=== PATIENT | female | born 1945 | race Two or more races ===

== ENCOUNTER 2017-05-24 18:53 | Emergency (ER) | payer OTHER, MEDICARE ==
[2017-05-24] MEDS ORDERED: ACETAMINOPHEN 325 MG TABLET PO ONE (19:23)
[2017-05-24] MEDS ORDERED: CEPHALEXIN 500 MG CAPSULE PO ONE (19:23)
[2017-05-24] MEDS ORDERED: LIDOCAINE 1% INJ-PF (10 MG/ML) 30 ML SDV INJ ONE (19:37)
[2017-05-24] MEDS ORDERED: DIPH/PERTUSS(ACELL)/TETANUS VAC/PF 0.5 ML SYR (>=10YO) IM ONE (19:42)
--- NOTE | 2017-05-24 20:03 | ER Document Report ---
ED Hand/Wrist Injury - General Chief Complaint: Finger Injury Stated Complaint: RIGHT MIDDLE FINGER INJURY/WORK INJURY Time Seen by Provider: 05/24/17 19:17 TRAVEL OUTSIDE OF THE [place] IN LAST 30 DAYS: No - HPI Injury to: Middle finger Onset: Just prior to arrival Where: Work - slice injury vs crush Quality of pain: No pain Context: Laceration - tetanus not UTD - Related Data Allergies/Adverse Reactions: Influenza Virus Vaccines Allergy (Verified 05/24/17 18:58) Home Medications: Current Home Medications Amlodipine Besylate 5 mg PO DAILY 05/24/17 [History] Calcitriol [Calcitriol] 1 tab PO DAILY 05/24/17 [History] Levothyroxine Sodium 1 tab PO DAILY 05/24/17 [History] Losartan Potassium 100 mg PO DAILY 05/24/17 [History] Past Medical History - Social History Smoking Status: Never Smoker Frequency of alcohol use: None Drug Abuse: None Family History: Reviewed & Not Pertinent - Past Medical History Cardiac Medical History: Reports: Hx Hypercholesterolemia, Hx Hypertension Renal/ Medical History: Denies: Hx Peritoneal Dialysis Surgical Hx: Negative - Immunizations Hx Diphtheria, Pertussis, Tetanus Vaccination: Yes Review of Systems - Review of Systems Constitutional: No symptoms reported Musculoskeletal: See HPI Skin: See HPI -: Yes All other systems reviewed and negative Physical Exam - Vital signs Vitals: Temp Pulse Resp BP Pulse Ox 98.1 F 65 16 138/89 H 97 05/24/17 18:54 05/24/17 18:54 05/24/17 18:54 05/24/17 18:54 05/24/17 18:54 - General General appearance: Appears well, Alert In distress: None - Cardiovascular Pulses: Normal: Radial Normal capillary refill: Yes - Neurological Motor strength normal: LUE, RUE 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 Laceration was irrigated with Betadine and saline at the bedside and closed with 6-0 nylon with 5 interrupted sutures. Patient tolerated the procedure well. No evidence of tuft fracture or foreign body noted on x-ray. Tetanus status updated. Patient is stable for discharge home on p.o. Keflex and to follow-up with her primary care physician in 8-10 days to have her sutures removed. - Vital Signs Vital signs: Temp Pulse Resp BP Pulse Ox 98.1 F 65 16 138/89 H 97 05/24/17 18:54 05/24/17 18:54 05/24/17 18:54 05/24/17 18:54 05/24/17 18:54 - Diagnostic Test Radiology reviewed: Image reviewed, Reports reviewed Discharge - Discharge Clinical Impression: Laceration Condition: Good Disposition: HOME, SELF-CARE Instructions: Antibiotic Ointment Protection ([facility]), Laceration Care ([facility]), Prophylactic Antibiotic ([facility]), Tetanus Immunization Given ([facility]), Soap Cleansing ([facility]) Additional Instructions: Please follow up with a medical provider in 8-10 days to have your stitches removed Prescriptions: Cephalexin Monohydrate [Keflex 500 mg Capsule] 500 mg PO QID #20 capsule Forms: Return to Work Referrals: BRANDY MOSQUEDA MD [Primary Care Provider] - Follow up as needed
--- NOTE | 2017-05-24 20:07 | RADIOLOGY REPORT (SQ) ---
EXAM DESCRIPTION: FINGER RIGHT COMPLETED DATE/TIME: 05/24/2017 7:59 pm REASON FOR STUDY: middle, lac, ? crush injury COMPARISON: None. NUMBER OF VIEWS: Three views. TECHNIQUE: AP, lateral, and oblique images acquired of the right third finger. LIMITATIONS: None. FINDINGS: MINERALIZATION: Normal. BONES: No acute fracture or dislocation. No worrisome bone lesions. SOFT TISSUES: Laceration of the tuft. No foreign body. OTHER: No other significant finding. IMPRESSION: Soft tissue laceration. No foreign body. COMMENT: SITE OF TRAUMA/COMPLAINT MARKED/STAMP COMPLETED: Yes TECHNICAL DOCUMENTATION: JOB ID: [id number] [employer]- All Rights Reserved
[2017-05-24 21:46] VITALS: BP 131/86
== END 2017-05-24 21:46 | disposition home or self-care (01) ==
LOC: ER 18:53
PROC: 0HQFXZZ Repair Right Hand Skin, External Approach (ICD-10-PCS; principal; 2017-05-24)
DX: S69.91XA Unspecified injury of right wrist, hand and finger(s), initial encounter (principal); W45.8XXA Other foreign body or object entering through skin, initial encounter; Y99.0 Civilian activity done for income or pay; Z79.899 Other long term (current) drug therapy
CPT/HCPCS: 99283; 90471; 73140; 90715; 12002; J3490

== ENCOUNTER → 2019-03-30 | Outpatient (CLI) | payer OTHER, MEDICARE ==
--- NOTE | 2019-03-30 13:44 | RADIOLOGY REPORT (SQ) ---
EXAM DESCRIPTION: BARIUM SWALLOW ESOPHAGUS COMPLETED DATE/TIME: 03/30/2019 9:17 am REASON FOR STUDY: BENIGN NEOPLASM OF CONNCTV/SOFT TISS OF HEAD, FACE AND NECK D21.0 BENIGN NEOPLASM OF CONNCTV/SOFT TISS OF HEAD, FACE AND COMPARISON: Chest films 09/02/2007 TECHNIQUE: Under fluoroscopic guidance, patient ingested effervescent granules followed by thick and thin barium. Fluoroscopic spot images and routine radiographic images acquired and stored on PACS. 12 MM BARIUM TABLET GIVEN: Yes. No significant delay in passage. LIMITATIONS: None. FLUOROSCOPY TIME: FLUORO TIME: 1 minutes 46 seconds 9 series of digital fluoroscopic images saved to PACS. FINDINGS: NEUROMUSCULAR COORDINATION OF SWALLOW: Normal. No aspiration. ESOPHAGEAL MOTILITY: Occasional tertiary contractions of the esophagus ESOPHAGEAL MUCOSA: Normal mucosa without masses or ulceration. GASTRO-ESOPHAGEAL JUNCTION: Small hiatal hernia with Schatzki's ring. Gastroesophageal reflux. Alla ent swallowed a 12 mm barium tablet which passed through the GE junction and into the stomach without difficulty NON-GI TRACT STRUCTURES: No significant finding. OTHER: No other significant finding. IMPRESSION: Small hiatal hernia with Schatzki's ring and gastroesophageal reflux. Patient swallowed 12 mm barium tablet without difficulty COMMENT: Quality ID [id number]: Final reports for procedures using fluoroscopy that document radiation exp osure indices, or exposure time and number of fluorographic images (if radiation exposure indices are not available) TECHNICAL DOCUMENTATION: JOB ID: [id number] [employer]- All Rights Reserved Reading location - IP/workstation name: [email or web address]
== END ==
LOC: RAD 08:49
PROVIDERS: ATTEND Internal Medicine
DX: K22.2 Esophageal obstruction (principal); K44.9 Diaphragmatic hernia without obstruction or gangrene; K21.9 Gastro-esophageal reflux disease without esophagitis; D21.0 Benign neoplasm of connective and other soft tissue of head, face and neck; E04.1 Nontoxic single thyroid nodule
CPT/HCPCS: 74220